=== PATIENT | male | born 1985 | race Caucasian/White ===

== ENCOUNTER 2017-07-17 20:19 | Emergency (ER) | payer OTHER ==
[2017-07-17 20:28] VITALS: BP 129/92; PULSE 90; TEMP 98.7; BMI 28.2
--- NOTE | 2017-07-17 20:29 | PDOC ---
History of Present Illness - General History Source: Patient Exam Limitations: No Limitations - History of Present Illness Initial Comments: 07/17/17 20:39 The patient is a 31 year old male with history of cigarette smoking who presents to the ED with one week of sore throat, nasal congestion, cough, and body aches. The patient reports runny nose and reports clear sputum when coughing. He denies having fever. He reports mild chest congestion as well. His friend who accompanied him states he is concerned that the patient inhaled black mold because his apartment was recently found to have it. The patient denies any nausea, vomiting, diarrhea. He denies any urinary symptoms. PAST MEDICAL HISTORY: no significant history PAST SURGICAL HISTORY: no significant history FAMILY HISTORY: no pertinent history SOCIAL HISTORY: Pt lives with family and is employed. Daily cigarette smoker MEDICATIONS: reviewed ALLERGIES: As per nursing notes Review of Systems General: No fevers or chills, no weakness, no weight loss HEENT: No change in vision. No sore throat,. No ear pain CardioVascular: No chest pain or shortness of breath Respiratory:No cough, or wheezing. Gastrointestinal: no nausea, vomiting, diarrhea or constipation, No rectal bleeding Genitourinary: No dysuria, hematuria, or frequency Musculoskeletal: No joint or muscle pain or swelling Neurologic: No headache, vertigo, dizziness or loss of consciousness Psychiatric: nor depression Skin: No rashes or easy bruising Endocrine: no increased thirst or abnormal weight change Allergic: no skin or latex allergy All other systems reviewed and normal Physical Exam General: Well-nourished well-developed individual, no acute distress HEENT: Throat: Normal, tonsils normal, Nasal congestion with clear discharge Neck: Supple, no meningeal signs, no lymphadenopathy Eyes::Pupils equal reactive and round, extraocular motion intact Chest: Nontender to palpation Cardiac: S1-S2 normal, regular rate and rhythm, no murmurs rubs or gallops Respiratory: Lungs clear to auscultation bilateral Abdomen: Soft, nondistended, normal bowel sounds, nontender to palpation diffusely Extremities: Warm, dry, no cyanosis, clubbing, or edema Skin: No rashes Neuro: Alert and oriented x3, nonfocal exam, grossly intact, normal gait Psych: Normal mood and affect <Fina Garza - Last Filed: 07/17/17 20:39> - General History Source: Patient Exam Limitations: No Limitations - History of Present Illness Initial Comments: A portion of this note was documented by scribe services under my direction. I have reviewed the details of the note, within reason, and agree with the documentation. The case summary and management plan written by me. 07/17/17 20:40 Medical decision making this is a 31-year-old male who comes in complaining of upper respiratory/ALLERGY-type that he contributes to exposure to black molds. Patient is had symptoms 1 week. Patient said they took a wall down that was full of black mold. Patient has had itchy eyes sneezing runny nose and congestion. Patient has not taken anything for his symptoms. Patient denies any fevers or chills. Patient most likely is having ALLERGIC reaction to the mold well medicate with an antihistamine, get a chest x-ray to rule out any pathology, advised patient to stop smoking, and have the air tested in his apartment for mold. 07/17/17 21:05 Chest x-ray no acute pathology Assessment and plan: This is a 31-year-old male who comes in complaining of upper respiratory/ALLERGY-type symptoms. Patient is attributing to exposure to black mold. Patient had a chest x-ray that was negative. Patient was medicated with Benadryl Patient was told to stop smoking, get his apartment tested for mold, and purchase some [id number] long-acting antihistamine such as Mayela or Claritin, Follow-up with his doctor if not improved with the antihistamines. <Elisabeth Reynolds I - Last Filed: 07/17/17 21:09> - General Chief Complaint: Cold Symptoms Stated Complaint: PAIN,SNEEZING, COUGHING Time Seen by Provider: 07/17/17 20:27 Past History <Fina Garza - Last Filed: 07/17/17 20:39> - Suicide/Smoking/Psychosocial Hx Smoking History: Current every day smoker Number of Cigarettes Smoked Daily: 20 Information on smoking cessation initiated: Yes <Elisabeth Reynolds I - Last Filed: 07/17/17 21:09> - Past Medical History Allergies/Adverse Reactions: Allergies Allergy/AdvReac Type Severity Reaction Status Date / Time No Known Allergies Allergy Unverified 07/17/17 20:27 Home Medications: Ambulatory Orders NK [No Known Home Medication] 07/17/17 *Physical Exam - Vital Signs Last Vital Signs Temp Pulse Resp BP Pulse Ox 98.7 F 90 16 129/92 96 07/17/17 20:25 07/17/17 20:25 07/17/17 20:25 07/17/17 20:25 07/17/17 20:25 <Fina Garza - Last Filed: 07/17/17 20:39> - Vital Signs Last Vital Signs Temp Pulse Resp BP Pulse Ox 98.7 F 90 16 129/92 96 07/17/17 20:25 07/17/17 20:25 07/17/17 20:25 07/17/17 20:25 07/17/17 20:25 <Elisabeth Reynolds I - Last Filed: 07/17/17 21:09> *DC/Admit/Observation/Transfer - Attestations Scribe Attestion: 07/17/17 20:39 Documentation prepared by Fina Garza, acting as medical physics researcher for Elisabeth Reynolds MD. <Fina Garza - Last Filed: 07/17/17 20:39> - Discharge Dispostion Admit: No <Elisabeth Reynolds I - Last Filed: 07/17/17 21:09> Diagnosis at time of Disposition: Mold exposure, Upper respiratory disease - Discharge Dispostion Disposition: HOME Condition at time of disposition: Stable - Referrals Referrals: ON STAFF,NOT [Non Staff, Medical] - - Patient Instructions Additional Instructions: His symptoms are most likely a combination of a upper respiratory tract infection which is viral in nature and an ALLERGIC reaction to exposure to the black mold in your living residence. You can purchase a mold test kit and did test the air quality to see the extent of the black mold in the air where he lived.. For the ALLERGIC reaction take a long-acting antihistamine such as Mayela or Claritin it is [id number]. Stop smoking Follow-up with your primary care doctor in 1 week if not improved. Return to the emergency department immediately with ANY new, persistent or worsening symptoms. Continue any medications as previously prescribed by your physician. You should follow up with your primary doctor as soon as possible regarding today's emergency department visit. . Please make sure your doctor reviews the results of your emergency evaluation. Thank you for coming to the Emergency Department today for your care. It was a pleasure to see you today. Please note that your evaluation is INCOMPLETE until you follow-up with your doctor. - Post Discharge Activity
[2017-07-17] MEDS ORDERED: diphenhydrAMINE HCL 50 MG CAPSULE PO ONE (20:38)
[2017-07-17] MEDS ORDERED: diphenhydrAMINE HCL 25 MG CAPSULE (FP) PO ONE ×2 (20:51→20:52)
== END 2017-07-17 21:14 | disposition home or self-care (01) ==
LOC: FER 20:19
DX: Z77.120 Contact with and (suspected) exposure to mold (toxic) (principal); J06.9 Acute upper respiratory infection, unspecified
CPT/HCPCS: 71046-TC-FY; 99281-25

== ENCOUNTER 2018-07-03 20:35 | Emergency (ER) | payer BC, OTHER ==
[2018-07-03 20:40] VITALS: BP 148/99; PULSE 117; TEMP 98.2; BMI 36.2
--- NOTE | 2018-07-03 21:14 | PDOC ---
History of Present Illness - General History Source: Patient Exam Limitations: No Limitations - History of Present Illness Initial Comments: 07/03/18 21:42 The patient is a 32 year old male, with no significant PMH, who presents to the emergency department complaining of 2 episodes of vomiting and 1 episode of diarrhea(non bilious and non bloody nature) that began today. The patient states he endorses associated symptoms of nausea, chills, sore throat and abdomen pain. He reports he went to [place] Wednesday and think his symptoms may be secondary to the [place] tap water. He also mentions that the people he was staying with in [place] came back from [place] 4 or 5 days ago prior to his arrival and had diarrhea. The patient denies chest pain, shortness of breath, headache and dizziness.Denies fever and constipation. Denies dysuria, frequency , urgency and hematuria. Allergies: NKDA Past surgical history: Appendectomy Social history: Smokes 1 pack a day but denies alcohol or recreational drug use. <Yoselin Titus - Last Filed: 07/03/18 21:58> <Amena Delgado - Last Filed: 07/06/18 04:28> - General Chief Complaint: Vomiting/Diarrhea Stated Complaint: VOMITING, DIARRHEA Time Seen by Provider: 07/03/18 20:36 Past History <Yoselin Titus - Last Filed: 07/03/18 21:58> - Past Medical History COPD: No - Surgical History Appendectomy: Yes - Suicide/Smoking/Psychosocial Hx Smoking History: Current every day smoker Have you smoked in the past 12 months: Yes Number of Cigarettes Smoked Daily: 20 Information on smoking cessation initiated: Yes 'Breaking Loose' booklet given: 07/17/17 Hx Alcohol Use: No <Amena Delgado - Last Filed: 07/06/18 04:28> - Past Medical History Allergies/Adverse Reactions: Allergies Allergy/AdvReac Type Severity Reaction Status Date / Time No Known Allergies Allergy Unverified 07/17/17 20:27 Home Medications: Ambulatory Orders Ondansetron [Zofran Odt -] 4 mg SL TID PRN #10 od.tablet 07/03/18 Review of Systems - Review of Systems Able to Perform ROS?: Yes Comments:: 07/03/18 21:42 GENERAL/CONSTITUTIONAL:+chills No fever. No weakness. HEAD, EYES, EARS, NOSE AND THROAT:+Sore throat. No change in vision. No ear pain or discharge. CARDIOVASCULAR: No chest pain or shortness of breath. RESPIRATORY: No cough, wheezing, or hemoptysis. GASTROINTESTINAL: +nausea +vomiting +diarrhea. No constipation. GENITOURINARY: No dysuria, frequency, or change in urination. MUSCULOSKELETAL: No joint or muscle swelling or pain. No neck or back pain. SKIN: No rash NEUROLOGIC: No headache, vertigo, loss of consciousness, or change in strength/ sensation. ENDOCRINE: No increased thirst. No abnormal weight change. HEMATOLOGIC/LYMPHATIC: No anemia, easy bleeding, or history of blood clots. ALLERGIC/IMMUNOLOGIC: No hives or skin allergy. <Yoselin Titus - Last Filed: 07/03/18 21:58> *Physical Exam - Vital Signs Last Vital Signs Temp Pulse Resp BP Pulse Ox 98.2 F 117 H 20 148/99 97 07/03/18 20:35 07/03/18 20:35 07/03/18 20:35 07/03/18 20:35 07/03/18 20:35 - Physical Exam Comments: 07/03/18 21:42 GENERAL: Awake, alert, and fully oriented, in no acute distress HEAD: No signs of trauma EYES: PERRLA, EOMI, sclera anicteric, conjunctiva clear ENT: +Dry mucous membrane erythematous oropharynx without edema or exudate. Auricles normal inspection, hearing grossly normal, nares patent. NECK: Normal ROM, supple, no lymphadenopathy, JVD, or masses LUNGS: Breath sounds equal, clear to auscultation bilaterally. No wheezes, and no crackles HEART: Regular rate and rhythm, normal S1 and S2, no murmurs, rubs or gallops ABDOMEN: +Normal bowel sounds soft mild distended generalize mild tenderness without masses, rebound tenderness or involuntary guarding. EXTREMITIES: Normal range of motion, no edema. No clubbing or cyanosis. No cords, erythema, or tenderness NEUROLOGICAL: Cranial nerves II through XII grossly intact. Normal speech, normal gait SKIN: Warm, Dry, normal turgor, no rashes or lesions noted. <Yoselin Titus - Last Filed: 07/03/18 21:58> - Vital Signs Last Vital Signs Temp Pulse Resp BP Pulse Ox 98.2 F 117 H 20 148/99 97 07/03/18 20:35 07/03/18 20:35 07/03/18 20:35 07/03/18 20:35 07/03/18 20:35 <Amena Delgado - Last Filed: 07/06/18 04:28> Moderate Sedation - Procedure Monitoring Vital Signs: Procedure Monitoring Vital Signs Temperature 98.2 F 07/03/18 20:35 Pulse Rate 117 H 07/03/18 20:35 Respiratory Rate 20 07/03/18 20:35 Blood Pressure 148/99 07/03/18 20:35 O2 Sat by Pulse Oximetry (%) 97 07/03/18 20:35 <Yoselin Titus - Last Filed: 07/03/18 21:58> - Procedure Monitoring Vital Signs: Procedure Monitoring Vital Signs Temperature 98.2 F 07/03/18 20:35 Pulse Rate 117 H 07/03/18 20:35 Respiratory Rate 20 07/03/18 20:35 Blood Pressure 148/99 07/03/18 20:35 O2 Sat by Pulse Oximetry (%) 97 07/03/18 20:35 <Amena Delgado - Last Filed: 07/06/18 04:28> Progress Note - Progress Note Progress Note: Documentation has been prepared under my direction and personally reviewed by me in its entirety. I attest that this documented accurately reflects all work, treatment, procedures and medical decision making performed by me. <Amena Delgado - Last Filed: 07/06/18 04:28> Medical Decision Making - Medical Decision Making As noted above, this otherwise healthy 32-year-old man presents with nausea/ vomiting/diarrhea after visiting friends in [place] earlier this week. His friends had visited [place] prior to his stay with them and they had subsequently developed vomiting and diarrhea. While the patient was in [place], he began to have symptoms which have continued now that he has arrived home. He denies blood or coffee grounds in emesis; no blood or mucus in stools. Exam as noted. Patient received 2 L of normal saline as well as 4 mg Zofran IV. Patient felt somewhat better except for having an episode of diarrhea. He received 4 mg Imodium by mouth. Patient was discharged with instructions to not work tonight; prescription for Zofran ODT 4 mg up to 3 times a day was sent to his pharmacy. He can also purchase Imodium at pharmacy when he picks up his prescription. He should drink plenty of clear liquids and advance diet as tolerated. He should return to the emergency room if he has persistent vomiting, increase in abdominal pain or notices blood in his stool. He should follow-up with his doctor within the next 3-4 days. <Amena Delgado - Last Filed: 07/06/18 04:28> *DC/Admit/Observation/Transfer - Attestations Scribe Attestion: 07/03/18 21:43 Documentation prepared by Yoselin Titus, acting as medical information officer for Amena Delgado MD. <Yoselin Titus - Last Filed: 07/03/18 21:58> <Amena Delgado - Last Filed: 07/06/18 04:28> Diagnosis at time of Disposition: Gastroenteritis - Discharge Dispostion Disposition: HOME Condition at time of disposition: Stable - Prescriptions Prescriptions: Ondansetron [Zofran Odt -] 4 mg SL TID PRN #10 od.tablet PRN Reason: Nausea - Patient Instructions Printed Discharge Instructions: DI for Viral Gastroenteritis -- Adult Additional Instructions: Rest; no work tonight Clear liquids; advance diet cautiously Zofran ODT 4 mg up to 3 times a day as needed for nausea Pepto-Bismol/Imodium/Kaopectate as needed for diarrhea; take as directed Return to ER if you have persistent vomiting/severe pain/fever or bloody diarrhea Follow-up with your doctor within the next 3-4 days - Post Discharge Activity Forms/Work/School Notes: Back to Work
[2018-07-03] MEDS ORDERED: ONDANSETRON 4 MG/2 ML VIAL IVPUSH ONE (21:31)
[2018-07-03] MEDS ORDERED: SODIUM CHLORIDE 1,000 ML IV STA ×2 (21:31→21:42)
[2018-07-03] MEDS ORDERED: ONDANSETRON 4 MG/2 ML VIAL ONE (21:32)
[2018-07-03] MEDS ORDERED: LOPERAMIDE HCL 2 MG CAPSULE ONE (23:13)
[2018-07-03] MEDS ORDERED: ONDANSETRON *ODT* 4 MG TABLET ONE (23:13)
== END 2018-07-03 22:52 | disposition home or self-care (01) ==
LOC: FER 20:35
PROC: 3E0337Z Introduction of Electrolytic and Water Balance Substance into Peripheral Vein, Percutaneous Approach (ICD-10-PCS; principal; 2018-07-03)
PROC: 3E033GC Introduction of Other Therapeutic Substance into Peripheral Vein, Percutaneous Approach (ICD-10-PCS; 2018-07-03)
DX: K52.9 Noninfective gastroenteritis and colitis, unspecified (principal); F17.210 Nicotine dependence, cigarettes, uncomplicated
CPT/HCPCS: 99282-25; J7030

== ENCOUNTER 2018-11-06 22:58 | Emergency (ER) | payer BC, OTHER | END 2018-11-06 23:17 | disposition home or self-care (01) | LOC: FER 22:58 ==

== ENCOUNTER 2019-06-05 21:34 | Emergency (ER) | payer BC, OTHER ==
[2019-06-05 21:47] VITALS: BP 156/100; PULSE 88; TEMP 98; BMI 33.9
--- NOTE | 2019-06-05 22:25 | PDOC ---
Documentation entered by Tianna Ortiz SCRIBE, acting as scribe for German Fernandez MD. German Fernandez MD: This documentation has been prepared by the Diana landis Xhesika, SCRIBE, under my direction and personally reviewed by me in its entirety. I confirm that the documentation accurately reflects all work, treatment, procedures, and medical decision making performed by me. History of Present Illness - General Chief Complaint: Respiratory Stated Complaint: POSITIVE PPD, REQUESTS CHEST XRAY History Source: Patient Exam Limitations: No Limitations - History of Present Illness Initial Comments: 06/05/19 21:47 The patient is a 33 year old male with no significant PMH of who presents to the emergency department requesting CXR s/p positive PPD. The patient states he had blood work done for a new job opportunity and the blood work came back for + PPD. Pt notes he currently works at [employer] and one of the residents has latent Tb. pt states he has been coughing the past month, but he is also an everyday smoker. The patient denies chest pain, shortness of breath, headache and dizziness. Denies fever, chills, nausea, vomiting, diarrhea and constipation. Denies dysuria, frequency, urgency and hematuria. Allergies: NKDA Past History - Past Medical History Allergies/Adverse Reactions: Allergies Allergy/AdvReac Type Severity Reaction Status Date / Time No Known Allergies Allergy Verified 06/05/19 21:36 Home Medications: Ambulatory Orders Rifampin [Rifadin -] 600 mg PO DAILY #60 capsule 06/05/19 COPD: No - Surgical History Appendectomy: Yes - Psycho Social/Smoking Cessation Hx Smoking History: Current every day smoker Have you smoked in the past 12 months: Yes Number of Cigarettes Smoked Daily: 15 Information on smoking cessation initiated: Yes 'Breaking Loose' booklet given: 07/17/17 Hx Alcohol Use: No Drug/Substance Use Hx: No Review of Systems - Review of Systems Able to Perform ROS?: Yes Comments:: 06/05/19 21:47 GENERAL/CONSTITUTIONAL: No fever or chills. No weakness. HEAD, EYES, EARS, NOSE AND THROAT: No change in vision. No ear pain or discharge. No sore throat. CARDIOVASCULAR: No chest pain or shortness of breath. RESPIRATORY: + cough. No wheezing, or hemoptysis. GASTROINTESTINAL: No nausea, vomiting, diarrhea or constipation. GENITOURINARY: No dysuria, frequency, or change in urination. MUSCULOSKELETAL: No joint or muscle swelling or pain. No neck or back pain. SKIN: No rash NEUROLOGIC: No headache, vertigo, loss of consciousness, or change in strength/ sensation. ENDOCRINE: No increased thirst. No abnormal weight change. HEMATOLOGIC/LYMPHATIC: No anemia, easy bleeding, or history of blood clots. ALLERGIC/IMMUNOLOGIC: No hives or skin allergy. *Physical Exam - Vital Signs Last Vital Signs Temp Pulse Resp BP Pulse Ox 98 F 88 16 156/100 99 06/05/19 21:37 06/05/19 21:37 06/05/19 21:37 06/05/19 21:37 06/05/19 21:37 - Physical Exam 06/05/19 21:48 GENERAL: Awake, alert, and fully oriented, in no acute distress NECK: Normal ROM, supple, no lymphadenopathy, JVD, or masses LUNGS: Breath sounds equal, clear to auscultation bilaterally. No wheezes, and no crackles HEART: Regular rate and rhythm, normal S1 and S2, no murmurs, rubs or gallops ABDOMEN: Soft, nontender, normoactive bowel sounds. No guarding, no rebound. No masses EXTREMITIES: Normal range of motion, no edema. No clubbing or cyanosis. No cords, erythema, or tenderness NEUROLOGICAL: Cranial nerves II through XII grossly intact. Normal speech, normal gait SKIN: Warm, Dry, normal turgor, no rashes or lesions noted ED Treatment Course - LABORATORY CBC & Chemistry Diagram: 06/05/19 22:30 06/05/19 22:30 - RADIOLOGY Radiology Studies Ordered: Category Date Time Status CHEST PA & LAT [RAD] Stat Radiology 06/05/19 21:49 Taken Medical Decision Making - Medical Decision Making 06/05/19 22:24 cxr negative, as read by me, referred to radiology latent tb rifampin pcp referral Discharge - Discharge Information Problems reviewed: Yes Clinical Impression/Diagnosis: Latent tuberculosis Condition: Stable Disposition: HOME - Additional Discharge Information Prescriptions: Rifampin [Rifadin -] 600 mg PO DAILY #60 capsule - Follow up/Referral - Patient Discharge Instructions Patient Printed Discharge Instructions: DI for Tuberculosis - Post Discharge Activity
[2019-06-05 22:39] LABS: BASO % 0.6 % (0-2.0); EOS % 2.2 % (0-4.5); HEMATOCRIT 48.5 % (35.4-49); HEMOGLOBIN 16.3 GM/dl (11.7-16.9); LYMPH % 40.6 % (8-40); MCH 30.6 pg (25.7-33.7); MCHC 33.6 g/dl (32.0-35.9); MEAN PLT VOLUME 10.1 fl (7.5-11.1); MONO % 8.6 % (3.8-10.2); PLATELET COUNT 167 K/MM3 (134-434); RBC 5.33 M/mm3 (4.00-5.60); RDW 12.2 % (11.9-15.9)
[2019-06-05 22:42] LABS: ALBUMIN 4.1 g/dl (3.4-5.0); BILIRUBIN,TOTAL 0.6 mg/dl (0.2-1); CREATININE 0.7 mg/dl (0.55-1.3); POTASSIUM 4.1 mmol/L (3.5-5.1); TOT PROT 7.1 g/dl (6.4-8.2)
== END 2019-06-05 23:21 | disposition home or self-care (01) ==
LOC: FER 21:34
DX: Z22.7 Latent tuberculosis (principal); F17.210 Nicotine dependence, cigarettes, uncomplicated
CPT/HCPCS: 36415; 71046-TC-FY; 80053; 85025; 99281-25

== ENCOUNTER 2019-07-12 15:47 | Emergency (ER) | payer BC ==
--- NOTE | 2019-07-12 16:07 | PDOC ---
History of Present Illness - General Chief Complaint: Headache Stated Complaint: HEADACHE TINGLING LEFT UPPER ARM Time Seen by Provider: 07/12/19 16:06 History Source: Patient Exam Limitations: No Limitations - History of Present Illness Initial Comments: 07/12/19 16:39 33yM w PMHx headaches and arm tingling presenting w R temporal mild throbbing headache, R peripheral lateral haziness/waves vision, L arm tingling starting 9a this morning. Headache and arm tingling unchanged from previous episodes happening every few days, usually self resolve without any meds. Pt was concerned about new onset R peripheral lateral haziness/waves vision lasting 15min alongside other symptoms this morning. Denies fever, nausea/vomiting, chest pain/SOB, ABD pain, urinary/bowel mvmt changes. 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 Notes headaches and arm tingling became more frequent after starting acyclovir. Also being treated w rifampin for past month for latent TB (positive PPD, neg symptoms and workup). Never addressed headaches/tingling ongoing for past year w PCP. Only gets 3hrs of sleep daily. Past History - Past Medical History Allergies/Adverse Reactions: Allergies Allergy/AdvReac Type Severity Reaction Status Date / Time No Known Allergies Allergy Verified 07/12/19 15:58 Home Medications: Ambulatory Orders Rifampin [Rifadin -] 600 mg PO DAILY #60 capsule 06/05/19 Acyclovir [Zovirax -] 1 tab PO DAILY 07/12/19 COPD: No - Surgical History Appendectomy: Yes - Psycho Social/Smoking Cessation Hx Smoking History: Current every day smoker Have you smoked in the past 12 months: Yes Number of Cigarettes Smoked Daily: 15 'Breaking Loose' booklet given: 07/17/17 Hx Alcohol Use: No Drug/Substance Use Hx: No Review of Systems - Review of Systems Constitutional: No: Chills, Fever HEENTM: Yes: Blurred Vision. No: Eye Pain, Nose Pain, Mouth Pain Respiratory: No: Cough, Shortness of Breath Cardiac (ROS): No: Chest Pain, Lightheadedness ABD/GI: No: Abdominal Distended, Constipated, Diarrhea, Nausea, Vomiting : No: Burning, Dysuria Musculoskeletal: No: Back Pain, Joint Pain Integumentary: No: Bruising, Dryness Neurological: Yes: Headache. No: Seizure, Tingling, Ataxia Psychiatric: No: Anxiety, Depression Endocrine: No: Intolerance to Cold, Intolerance to Heat Hematologic/Lymphatic: No: Anemia, Blood Clots *Physical Exam - Physical Exam General Appearance: Yes: Nourished, Appropriately Dressed, Mild Distress HEENT: positive: EOMI, EDNA, Normal Voice, Hearing Grossly Normal. negative: Scleral Icterus (R), Scleral Icterus (L) Respiratory/Chest: positive: Lungs Clear, Normal Breath Sounds. negative: Chest Tender, Respiratory Distress, Crackles, Rales, Rhonchi, Stridor, Wheezing Cardiovascular: positive: Regular Rhythm, S1, S2, Tachycardia. negative: Edema , Murmur Integumentary: positive: Normal Color. 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 negative: Facial Droop, Numbness, Sensory Deficit, Confused, Disoriented Medical Decision Making - Medical Decision Making 07/12/19 16:46 33yM w PMHx headaches and arm tingling presenting w R temporal headache, R peripheral vision defect, L arm tingling d/t migraine w scotoma 2/2 lack of sleep. Low concern for CVA (no focal neuro deficits besides L arm tingling, no cardiovascular risk factors) vs ICH (no HTN). Given tylenol, reglan. Advised stop taking acyclovir d/t lack of associated symptoms. 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 Drink lots of water and get adequate sleep Stop taking acyclovir. Follow up with the referred neurologist regarding your symptoms. - Post Discharge Activity Work/Back to School Note: Back to Work
[2019-07-12 16:11] VITALS: BP 135/87; PULSE 102; TEMP 98.3; BMI 34.5
--- NOTE | 2019-07-12 16:12 | PDOC ---
Attending Attestation - Resident Resident Name: Johnathan Sarabia - ED Attending Attestation I have performed the following: I have examined & evaluated the patient, The case was reviewed & discussed with the resident, I agree w/resident's findings & plan, Exceptions are as noted - HPI HPI: 07/12/19 17:14 Migraines since childhood associated with tingling of the left side of his face and left arm. Occurring several times per month, self-limited, takes no medication. Has had no neurological evaluation. Today had a typical episode, but this was accompanied by a left visual field defect in his left eye, which lasted a few minutes then resolve spontaneously. There is no persistent headache, numbness or tingling, or visual disturbance. Other history is significant for epilepsy as a child, but no seizures for over 5 years. Maintained on no antiepileptic. Positive IgG serology for herpes virus, for which he was recommended to take acyclovir once daily for the rest of his life. This was begun approximately 2 weeks ago. 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 - Physicial Exam PE: 07/12/19 17:17 Alert oriented x3 well-developed well-nourished no acute distress. Cheerful and cooperative. Asymptomatic now Afebrile, vital signs normal PERRLA 4 mm, fundi benign with sharp disc margins and good central venous pulsations, no hemorrhages or exudates. Visual bailey intact to confrontation. EOMs full without diplopia. ENT clear Neck supple without bruit mass or nodes Lungs clear, full breath sounds bilaterally CV S1-S2 normal without murmur rub or gallop pulses full and symmetric no JVD or edema no bruits regular rate Abdomen benign Neurological C2 to 12 intact. Strength full and symmetric. No focal sensorimotor deficits. Cerebellar intact. Gait stable and unimpaired - Medical Decision Making 07/12/19 17:18 Assessment is chronic migraine syndrome, usual symptoms recurrent today, however , additional visual symptoms are new. All symptoms have now resolved, and the patient's neurological as well as complete physical exam is normal at present Plan: Administer analgesic and antiemetic. Detailed counseling regarding his migraine symptoms and the need for further evaluation and treatment by neurology specialist. Encouraged to see neurologist as soon as possible. Return to ER if symptoms recur or more severe. Otherwise follow-up with primary physician and neurologist as directed. Fully ambulatory, asymptomatic at discharge.
[2019-07-12] MEDS ORDERED: SODIUM CHLORIDE 0.9% 500 ML INFUS.BAG IV ONE (16:38)
[2019-07-12] MEDS ORDERED: ACETAMINOPHEN 1000 MG/100 ML VIAL (NON FORMULARY) IVPB ONE (16:38)
[2019-07-12] MEDS ORDERED: METOCLOPRAMIDE HCL INJECTION 10 MG/2 ML VIAL IVPB ONE (16:38)
[2019-07-12] MEDS ORDERED: METOCLOPRAMIDE HCL 10 MG TABLET (FP) PO ONE ×2 (16:49→16:52)
[2019-07-12] MEDS ORDERED: ACETAMINOPHEN 500 MG TABLET (FP) PO ONE (16:49)
[2019-07-12] MEDS ORDERED: ACETAMINOPHEN 325 MG TABLET (FP) ONE (16:52)
== END 2019-07-12 17:16 | disposition home or self-care (01) ==
LOC: FER 15:47
DX: G43.009 Migraine without aura, not intractable, without status migrainosus (principal); H53.412 Scotoma involving central area, left eye; F17.210 Nicotine dependence, cigarettes, uncomplicated
CPT/HCPCS: 99283-25

== ENCOUNTER 2024-02-11 18:49 | Emergency (ER) | payer BC ==
[2024-02-11 19:03] VITALS: BP 135/86; PULSE 77; RESP 16; TEMP 98.2; BMI 33.9
[2024-02-11] MEDS ORDERED: NAPROXEN 500 MG TABLET ONE (20:36)
[2024-02-11] MEDS: NAPROXEN 500 MG TABLET PO ONE (20:39)
[2024-02-11] MEDS ORDERED: AZITHROMYCIN 500 MG TABLET ONE (22:00)
[2024-02-11] MEDS ORDERED: AMOX TR/POT CLAV 875MG/125MG TABLETS (FP) ONE (22:00)
[2024-02-11] MEDS: AMOX TR/POT CLAV 875MG/125MG TABLETS (FP) PO ONE (22:03)
[2024-02-11] MEDS: AZITHROMYCIN 250 MG TABLET PO ONE (22:03)
== END 2024-02-11 22:09 | disposition home or self-care (01) ==
LOC: FER 18:49
DX: J18.9 Pneumonia, unspecified organism (principal); R05.9 Cough, unspecified; R07.89 Other chest pain
CPT/HCPCS: 71046-TC-FY; 71101-TC-RT-FY; 99283-25